=== PATIENT | male | born 1985 | race Hispanic/Latino ===

== ENCOUNTER 2018-04-10 17:30 | Emergency (ER) | payer OTHER, SELFPAY ==
[2018-04-10] MEDS ORDERED: ASPIRIN EC 81 MG TAB PO ONE (18:33)
--- NOTE | 2018-04-10 18:43 | RAD REPORT ---
EXAM DESCRIPTION: Arnoldo Single View04/10/2018 6:38 pm CLINICAL HISTORY: Chest pain COMPARISON: 2016 FINDINGS: The lungs appear clear of acute infiltrate. The heart is normal size IMPRESSION: No acute abnormalities displayed
[2018-04-10 18:56] LABS: Absolute Lymphocytes (CBC) 2.3 K/uL (0.7-4.9); Absolute Monocytes 0.3 K/uL (0.1-1.3); Absolute Neutrophil 3.1 K/uL (1.8-8.0); Basophils % 0.5 % (0-1.3); Eosinophils % 1.9 % (0-4.4); Hematocrit 43.5 % (39.6-49.0); Lymphocytes % 39.3 % (15.3-44.8); MPV 9.9 fL (7.6-11.3); Monocytes % 5.5 % (3.3-12.3); RBC Red Blood Cell Count 4.48 M/uL (4.33-5.43)
[2018-04-10 19:29] LABS: ALT/SGPT 27 U/L (12-78); AST/SGOT 19 U/L (15-37); Albumin 4.4 g/dL (3.4-5.0); Alkaline Phosphatase 71 U/L (45-117); BUN Blood Urea Nitrogen 20 mg/dL (7-18); Bicarbonate 25 mmol/L (21-32); Bilirubin Direct 0.1 mg/dL (0-0.2); Bilirubin Total 0.4 mg/dL (0.2-1.0); Glucose Level 96 mg/dL (74-106); Magnesium 2.2 mg/dL (1.8-2.4); Potassium 3.4 mmol/L (3.5-5.1); Protein, Total 8.5 g/dL (6.4-8.2); Sodium Level 141 mmol/L (136-145); Troponin (Emerg Dept Use Only) < 0.02 ng/mL (0.0-0.045)
--- NOTE | 2018-04-10 20:18 | EDPHYS ---
Physician Documentation [facility] Name: Bill Godwin Age: 32 yrs Sex: Male : 1985 Arrival Date: 04/10/2018 Time: 17:34 Bed 27 Private MD: EM BELLO ED Physician Kenneth Arreaga HPI: 04/10 18:19 This 32 yrs old Male presents to ER via Ambulatory with complaints of Chest delores Pain. 18:19 This 32 yrs old Male presents to ER via Ambulatory with complaints of Chest delores Pain. 18:19 This 32 yrs old Male presents to ER via Ambulatory with complaints of Chest delores Pain. 18:19 This 32 yrs old Male presents to ER via Ambulatory with complaints of Chest delores Pain. 18:19 The patient or guardian reports chest pain that is located primarily in the anterior delores chest wall, bilaterally. The pain does not radiate. Associated signs and symptoms: The patient has no apparent associated signs or symptoms. The chest pain is described as sternum sore, working out. Modifying factors: The symptoms are alleviated by remaining still, the symptoms are aggravated by palpation of area, twisting torso. Severity of pain: At its worst the pain was mild in the emergency department the pain is unchanged. The patient has not experienced similar symptoms in the past. Historical: - Allergies: 17:55 No Known Allergies; sg - Home Meds: 17:55 losartan 50 mg oral tab 1 tab 2 times per day [Active]; sg - PMHx: 17:55 Hypertension; sg - PSHx: 17:55 None; sg - Immunization history:: Adult Immunizations up to date. - Social history:: Smoking status: Patient/guardian denies using tobacco. - Ebola Screening: : Patient negative for fever greater than or equal to 101.5 degrees Fahrenheit, and additional compatible Ebola Virus Disease symptoms Patient denies exposure to infectious person Patient denies travel to an Ebola-affected area in the 21 days before illness onset No symptoms or risks identified at this time. - Family history:: not pertinent. ROS: 18:19 Constitutional: Negative for fever, chills, and weight loss, Eyes: Negative for injury, delores pain, redness, and discharge, ENT: Negative for injury, pain, and discharge, Neck: Negative for injury, pain, and swelling, Respiratory: Negative for shortness of breath, cough, wheezing, and pleuritic chest pain, Abdomen/GI: Negative for abdominal pain, nausea, vomiting, diarrhea, and constipation, Back: Negative for injury and pain, : Negative for injury, bleeding, discharge, and swelling, MS/Extremity: Negative for injury and deformity, Skin: Negative for injury, rash, and discoloration, Neuro: Negative for headache, weakness, numbness, tingling, and seizure, Psych: Negative for depression, anxiety, suicide ideation, homicidal ideation, and hallucinations, Allergy/Immunology: Negative for hives, rash, and allergies, Endocrine: Negative for neck swelling, polydipsia, polyuria, polyphagia, and marked weight changes, Hematologic/Lymphatic: Negative for swollen nodes, abnormal bleeding, and unusual bruising. 18:19 Cardiovascular: Positive for chest pain, of the mid-sternal area. Exam: 18:19 Constitutional: This is a well developed, well nourished patient who is awake, alert, delores and in no acute distress. Head/Face: Normocephalic, atraumatic. Eyes: Pupils equal round and reactive to light, extra-ocular motions intact. Lids and lashes normal. Conjunctiva and sclera are non-icteric and not injected. Cornea within normal limits. Periorbital areas with no swelling, redness, or edema. ENT: Nares patent. No nasal discharge, no septal abnormalities noted. Tympanic membranes are normal and external auditory canals are clear. Oropharynx with no redness, swelling, or masses, exudates, or evidence of obstruction, uvula midline. Mucous membranes moist. Neck: Trachea midline, no thyromegaly or masses palpated, and no cervical lymphadenopathy. Supple, full range of motion without nuchal rigidity, or vertebral point tenderness. No Meningismus. Cardiovascular: Regular rate and rhythm with a normal S1 and S2. No gallops, murmurs, or rubs. Normal PMI, no JVD. No pulse deficits. Respiratory: Lungs have equal breath sounds bilaterally, clear to auscultation and percussion. No rales, rhonchi or wheezes noted. No increased work of breathing, no retractions or nasal flaring. Abdomen/GI: Soft, non-tender, with normal bowel sounds. No distension or tympany. No guarding or rebound. No evidence of tenderness throughout. Back: No spinal tenderness. No costovertebral tenderness. Full range of motion. Skin: Warm, dry with normal turgor. Normal color with no rashes, no lesions, and no evidence of cellulitis. MS/ Extremity: Pulses equal, no cyanosis. Neurovascular intact. Full, normal range of motion. Neuro: Awake and alert, GCS 15, oriented to person, place, time, and situation. Cranial nerves II-XII grossly intact. Motor strength 5/5 in all extremities. Sensory grossly intact. Cerebellar exam normal. Normal gait. Psych: Awake, alert, with orientation to person, place and time. Behavior, mood, and affect are within normal limits. 18:19 Chest/axilla: Inspection: normal, Palpation: tenderness, that is mild, of the mid-sternal area, Axilla: are normal, Lymph nodes: lymphadenopathy is not appreciated. 20:17 Musculoskeletal/extremity: DVT Exam: No signs of deep vein thrombosis. no pain, no delores swelling, no tenderness, negative Homans' sign noted on exam, no appreciated bluish discoloration, no erythema, no increased warmth. Vital Signs: 17:55 BP 143 / 85; Pulse 80; Resp 17; Temp 98.8; Pulse Ox 100% on R/A; Weight 108.86 kg; sg Height 5 ft. 10 in. (177.80 cm); Pain 2/10; 19:00 BP 147 / 86; Pulse 75; Resp 18; Pulse Ox 100% on R/A; ca1 20:15 BP 140 / 95; Pulse 78; Resp 18; Pulse Ox 100% on R/A; ca1 20:40 BP 136 / 87; Pulse 85; Resp 18; Pulse Ox 100% on R/A; ca1 17:55 Body Mass Index 34.44 (108.86 kg, 177.80 cm) sg MDM: 18:12 Patient medically screened. [facility] 20:17 Data reviewed: vital signs, nurses notes, lab test result(s), EKG, radiologic studies, [facility] plain films. 04/10 18:19 Order name: Basic Metabolic Panel; Complete Time: 20:16 [facility] 04/10 18:19 Order name: CBC with Diff; Complete Time: 20:16 [facility] 04/10 18:19 Order name: LFT's; Complete Time: 20:16 [facility] 04/10 18:19 Order name: Magnesium; Complete Time: 20:16 [facility] 04/10 18:19 Order name: Troponin (emerg Dept Use Only); Complete Time: 20:16 [facility] 04/10 18:19 Order name: XRAY Chest (1 view); Complete Time: 20:16 [facility] 04/10 18:07 Order name: EKG Electrocardiogram [facility] 04/10 18:19 Order name: Cardiac monitoring; Complete Time: 18:20 [facility] 04/10 18:19 Order name: EKG - Nurse/Tech; Complete Time: 18:20 [facility] 04/10 18:19 Order name: IV Saline Lock; Complete Time: 19:02 [facility] 04/10 18:19 Order name: Labs collected and sent; Complete Time: 19:02 [facility] 04/10 18:19 Order name: O2 Per Protocol; Complete Time: 18:20 [facility] 04/10 18:19 Order name: O2 Sat Monitoring; Complete Time: 18:20 [facility] Administered Medications: 18:22 Drug: Aspirin 81 mg Route: PO; ca1 20:36 Follow up: Response: No adverse reaction; Pain is decreased ca1 20:25 Drug: Potassium Effervescent Tablet 25 mEq Route: PO; ca1 20:36 Follow up: Response: Medication administered at discharge. ca1 Disposition: 04/10/18 20:17 Discharged to Home. Impression: Chest pain, unspecified - wall, Chondrocostal junction syndrome [Tietze], Hypokalemia. - Condition is Stable. - Discharge Instructions: Nonspecific Chest Pain, Chest Wall Pain, Costochondritis, Chest Wall Pain, [id number], Nonspecific Chest Pain, [id number], Aspirin and Your Heart. - Prescriptions for Ibuprofen 600 mg Oral Tablet - take 1 tablet by ORAL route every 8 hours As needed take with food; 21 tablet. - Medication Reconciliation Form, Thank You Letter, Antibiotic Education, Prescription Opioid Use form. - Follow up: Private Physician; When: 2 - 3 days; Reason: Recheck today's complaints, Continuance of care, Re-evaluation by your physician. Follow up: Joseph Morse; When: 2 - 3 days; Reason: Recheck today's complaints, Re-evaluation by your physician. - Problem is new. - Symptoms have improved. Signatures: Dispatcher [employer] EDLuis Jennings RN RN sg Anderson, Corey, MD MD [facility] Marivel Tolentino RN RN ca1 Corrections: (The following items were deleted from the chart) 20:42 20:17 04/10/2018 20:17 Discharged to Home. Impression: Chest pain, unspecified - wall; ca1 Chondrocostal junction syndrome [Tietze]; Hypokalemia. Condition is Stable. Discharge Instructions: Nonspecific Chest Pain, Chest Wall Pain, Costochondritis, Chest Wall Pain, [id number], Nonspecific Chest Pain, [id number], Aspirin and Your Heart. Prescriptions for Ibuprofen 600 mg Oral Tablet - take 1 tablet by ORAL route every 8 hours As needed take with food; 21 tablet. and Forms are Medication Reconciliation Form, Thank You Letter, Antibiotic Education, Prescription Opioid Use. Follow up: Private Physician; When: 2 - 3 days; Reason: Recheck today's complaints, Continuance of care, Re-evaluation by your physician. Follow up: Joseph Morse; When: 2 - 3 days; Reason: Recheck today's complaints, Re-evaluation by your physician. Problem is new. Symptoms have improved. delores
--- NOTE | 2018-04-10 20:18 | ER ---
Nurse's Notes [facility] Name: Bill Godwin Age: 32 yrs Sex: Male : 1985 Arrival Date: 04/10/2018 Time: 17:34 Bed 27 Private MD: EM BELLO Diagnosis: Chest pain, unspecified-wall;Chondrocostal junction syndrome [Tietze];Hypokalemia Presentation: 04/10 17:56 Presenting complaint: Patient states: Midsternal CP that does not radiate anywhere, was sg seen at his PCP office, was cleared the provider said the EKG was normal, but the pain has been pretty consistent and is described as dull and nagging and " annoying" pt denies N/V/D. Transition of care: patient was not received from another setting of care. Onset of symptoms was April 10, 2018. Risk Assessment: Do you want to hurt yourself or someone else? Patient reports no desire to harm self or others. Initial Sepsis Screen: Does the patient meet any 2 criteria? No. Patient's initial sepsis screen is negative. Care prior to arrival: None. 17:56 Method Of Arrival: Ambulatory sg 17:56 Acuity: DELMAR 3 sg 20:38 Initial Sepsis Screen: Does the patient have a suspected source of infection? No. ca1 Patient's initial sepsis screen is negative. Historical: - Allergies: 17:55 No Known Allergies; sg - Home Meds: 17:55 losartan 50 mg oral tab 1 tab 2 times per day [Active]; sg - PMHx: 17:55 Hypertension; sg - PSHx: 17:55 None; sg - Immunization history:: Adult Immunizations up to date. - Social history:: Smoking status: Patient/guardian denies using tobacco. - Ebola Screening: : Patient negative for fever greater than or equal to 101.5 degrees Fahrenheit, and additional compatible Ebola Virus Disease symptoms Patient denies exposure to infectious person Patient denies travel to an Ebola-affected area in the 21 days before illness onset No symptoms or risks identified at this time. - Family history:: not pertinent. Screenin:16 Abuse screen: Denies threats or abuse. Denies injuries from another. Nutritional ca1 screening: No deficits noted. Tuberculosis screening: No symptoms or risk factors identified. Fall Risk None identified. Assessment: 18:16 General: Appears in no apparent distress. comfortable, Behavior is calm, cooperative, ca1 appropriate for age. Pain: Denies pain. Pain: Complains of pain in mid-sternal area Pain does not radiate. Pain at worst was 2 out of 10 on a pain scale. Pain began 1.5 weeks ago. Neuro: Level of Consciousness is awake, alert, obeys commands, Oriented to person, place, time, situation. Cardiovascular: Heart tones S1 S2 present Capillary refill < 3 seconds. Respiratory: Breath sounds are clear bilaterally. GI: Abdomen is flat, non-distended, Bowel sounds present X 4 quads. Abd is soft and non tender X 4 quads. : No signs and/or symptoms were reported regarding the genitourinary system. EENT: No signs and/or symptoms were reported regarding the EENT system. Derm: Skin is intact, is healthy with good turgor, Skin is pink, warm \\T\\ dry. Musculoskeletal: Circulation, motion, and sensation intact. 19:14 Reassessment: Patient appears in no apparent distress at this time. Patient and/or ca1 family updated on plan of care and expected duration. Pain level reassessed. Patient is alert, oriented x 3, equal unlabored respirations, skin warm/dry/pink. 20:30 Reassessment: Patient appears in no apparent distress at this time. Patient and/or ca1 family updated on plan of care and expected duration. Pain level reassessed. Patient is alert, oriented x 3, equal unlabored respirations, skin warm/dry/pink. Vital Signs: 17:55 BP 143 / 85; Pulse 80; Resp 17; Temp 98.8; Pulse Ox 100% on R/A; Weight 108.86 kg; sg Height 5 ft. 10 in. (177.80 cm); Pain 2/10; 19:00 BP 147 / 86; Pulse 75; Resp 18; Pulse Ox 100% on R/A; ca1 20:15 BP 140 / 95; Pulse 78; Resp 18; Pulse Ox 100% on R/A; ca1 20:40 BP 136 / 87; Pulse 85; Resp 18; Pulse Ox 100% on R/A; ca1 17:55 Body Mass Index 34.44 (108.86 kg, 177.80 cm) ED Course: 17:34 Patient arrived in ED. tw3 17:34 EM BELLO is Private Physician. tw3 17:54 Arm band placed on. sg 17:57 Triage completed. sg 18:00 EKG done, by blow mold technician. reviewed by Kenneth Arreaga MD. sg 18:12 Kenneth Arreaga MD is Attending Physician. delores 18:16 Marivel Tolentino, AUDI is Primary Nurse. ca1 18:16 Patient has correct armband on for positive identification. Placed in gown. Bed in low ca1 position. Call light in reach. Side rails up X 1. manager monitoring on. Pulse ox on. NIBP on. Warm blanket given. 18:16 Patient maintains SpO2 saturation greater than 95% on room air. ca1 18:39 XRAY Chest (1 view) In Process Unspecified. EDMS 18:48 Missed attempt(s): 20 gauge in left antecubital area. lt1 18:49 Inserted saline lock: 20 gauge in left antecubital area, using aseptic technique. lt1 18:49 Initial lab(s) drawn, by me, sent to lab. lt1 20:17 Joseph Morse MD is Referral Physician. delores 20:37 No provider procedures requiring assistance completed. IV discontinued, intact, ca1 bleeding controlled, No redness/swelling at site. Pressure dressing applied. Administered Medications: 18:22 Drug: Aspirin 81 mg Route: PO; ca1 20:36 Follow up: Response: No adverse reaction; Pain is decreased ca1 20:25 Drug: Potassium Effervescent Tablet 25 mEq Route: PO; ca1 20:36 Follow up: Response: Medication administered at discharge. ca1 Outcome: 20:17 Discharge ordered by . delores 20:37 Discharged to home ambulatory. ca1 20:37 Condition: stable 20:37 Discharge instructions given to patient, Instructed on discharge instructions, follow up and referral plans. medication usage, Demonstrated understanding of instructions, follow-up care, medications, Prescriptions given X 1. 20:42 Patient left the ED. ca1 Signatures: Dispatcher [employer] EDLuis Jennings, AUDI RN Kenneth Castellanos MD MD cha Wade, [place] tw3 Marivel Tolentino RN RN Tamara Escoto lt1
[2018-04-10] MEDS ORDERED: POTASSIUM 25 MEQ EFFERV TAB ONE (20:38)
--- NOTE | 2018-04-11 07:39 | EKG ---
Test Date: 2018-03-10 Test Time: 18:01:15 Information Systems Security Analyst: ROXY MEASUREMENT RESULTS: Intervals: Rate: 83 MT: 156 QRSD: 110 QT: 362 QTc: 425 [place]: P: 70 MT: 156 QRS: 54 T: 12 INTERPRETIVE STATEMENTS: Normal sinus rhythm Nonspecific T wave abnormality Abnormal ECG Compared to ECG 12/08/2015 16:20:42 T-wave abnormality now present Electronically Signed On 04-11-18 07:30:10 METAL FINISHER by Elier Bartholomew
== END 2018-04-10 20:42 | disposition home or self-care (01) ==
LOC: ER 17:30
DX: M94.0 Chondrocostal junction syndrome [Tietze] (principal); R07.89 Other chest pain; E87.6 Hypokalemia; I10 Essential (primary) hypertension; Z79.899 Other long term (current) drug therapy
CPT/HCPCS: 36415; 71045; 80048; 80076; 83735; 84484; 85025; 93005; 99285